=== PATIENT | female | born 1935 | race Caucasian/White ===

== ENCOUNTER 2017-01-07 10:32 | Emergency (ER) | payer MEDICARE, OTHER ==
[2017-01-07 10:56] VITALS: BP 147/90
--- OUTSIDE RECORDS SUMMARY | 2017-01-07 11:05 | XMS REPORT | Summary of Care ---
:1935 Author Organization [facility] Address [address] [place] [address] Care Team Providers Name Role Phone Hugo Quinn Primary Care Physician Encounter Date(s): 11/27/16 - 11/27/16 [facility], [address] [place], [place] [address] Discharge Diagnosis: Hypertension Discharge Diagnosis: CKD stage 3 Discharge Disposition: Discharged to Home or Self Care Attending Physician: Brock Cheung MD Referring Physician: Brock Cheung MD Vital Signs Most recent to oldest [Reference Range]: 1 Temperature Temporal Artery [36.0-38.0 DegC] 36.3 DegC (11/27/16 12:59 PM) Peripheral Pulse Rate [60-100 bpm] 84 bpm (11/27/16 12:59 PM) Blood Pressure [90-130/60-90 mmHg] 134/82mmHg *HI* (11/27/16 12:59 PM) Mean Arterial Pressure, Cuff 99 mmHg (11/27/16 12:59 PM) Most recent to oldest [Reference Range]: 1 Height/Length Measured 160 cm (11/27/16 12:59 PM) Weight Dosing 102.3 kg (11/27/16 12:59 PM) Weight Measured 102.3 kg (11/27/16 12:59 PM) BSA Measured 2.03 m2 (11/27/16 12:59 PM) Body Mass Index Measured 39.96 kg/m2 (11/27/16 12:59 PM) Problem List Condition Effective Dates Status Health Status Informant ARF (acute renal failure)(Confirmed) Active Arthritis(Confirmed) Active Asthma(Confirmed) Active CKD stage 3(Confirmed) Active Depression(Confirmed) Active Dyspepsia(Confirmed) Active Generalized osteoarthritis(Confirmed) Active GERD - Gastro-esophageal reflux Active disease(Confirmed) Hypertension(Confirmed) Active Hypothyroidism(Confirmed) Active Vision problems - lens Active implant(Confirmed) RhA - Rheumatoid arthritis(Confirmed) Active Sciatica(Confirmed) Active Allergies, Adverse Reactions, Alerts Substance Reaction Severity Status adhesives1 hives Active lisinopril Cough Mild Active OxyCODONE Hydrochloride ER Rash Active Sulfanilamide Rash Active sulindac C/O - cough Active 1bandaids do not cause any problems Medications albuterol 2.5 mg/3 mL (0.083%) inhalation solution 3 mL, Inhale, BID, PRN as needed for wheezing, 0 Refill(s), Start Date: 8:29:00 CDT Start Date: 01/30/16 Status: Orderedalbuterol HFA 2 puff(s), Inhale, QID, PRN as needed for wheezing, Start Date: 09/20/13 9:11: 00 CDT Start Date: 09/20/13 Status: Orderedallopurinol 300 mg oral tablet 1 tab(s), Oral, Daily, Start Date: 09/20/13 9:15:00 CDT Start Date: 09/20/13 Status: OrderedamLODIPine 10 mg oral tablet 1 tab(s), Oral, Daily, # 90 tab(s), 3 Refill(s), Start Date: 06/22/14 14:56:59 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, Pharmacy: [facility] Start Date: 06/22/14 Status: OrderedamLODIPine 10 mg oral tablet 1 tab(s), Oral, Daily Start Date: 09/20/13 Stop Date: 09/20/13 Status: CompletedamLODIPine 10 mg oral tablet 1 tab(s), Oral, Daily, # 90 tab(s), 0 Refill(s), Start Date: 06/21/14 11:15:00 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, Pharmacy: [facility] Start Date: 06/21/14 Stop Date: 06/22/14 Status: CompletedamLODIPine 5 mg oral tablet 1 tab(s), Oral, Daily, # 30 tab(s), 0 Refill(s), Start Date: 06/03/14 11:39:00 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 Start Date: 06/03/14 Stop Date: 06/21/14 Status: Discontinuedamoxicillin 875 mg oral tablet See Instructions, 2 tab(s) Oral (each tablet of 875 mg ) 1 hour before procedure with a sip of water., # 875 mg, 0 Refill(s), Start Date: 10/26/14 11: 47:19 CDT, Pharmacy: [facility] [id number] Special Instructions: 2 tab(s) Oral (each tablet of 875 mg ) 1 hour before procedure with a sip of water. Start Date: 10/26/14 Stop Date: 12/21/14 Status: Completedamoxicillin 875 mg oral tablet See Instructions, 2 tab(s) Oral (each tablet of 875 mg ) 1 hour before procedure with a sip of water., # 875 mg, 0 Refill(s), Start Date: 10/25/14 15: 35:00 CDT, Pharmacy: [facility] Special Instructions: 2 tab(s) Oral (each tablet of 875 mg ) 1 hour before procedure with a sip of water. Start Date: 10/25/14 Stop Date: 10/26/14 Status: Completedaspirin 81 mg oral tablet 1 tab(s), Oral, Daily, Start Date: 09/20/13 9:16:00 CDT Start Date: 09/20/13 Status: Orderedcalcium (as carbonate)-vitamin D 600 mg-200 intl units oral tablet 1 tab(s), Oral, Daily, Start Date: 09/20/13 9:13:00 CDT Start Date: 09/20/13 Status: Orderedcitalopram 20 mg oral tablet 1 tab(s), Oral, Daily, PRN anxiety, Start Date: 09/20/13 9:16:00 CDT Start Date: 09/20/13 Status: Ordereddiclofenac sodium 50 mg oral enteric coated tablet 1 tab(s), Oral, TID Start Date: 09/20/13 Stop Date: 02/22/14 Status: Discontinueddoxazosin 1 mg oral tablet 1 tab(s), Oral, HS, # 30 tab(s), 2 Refill(s), Start Date: 11/27/16 13:16:00 CDT , Pharmacy: [facility] [id number] Start Date: 11/27/16 Status: Orderedfluticasone 0.05 mg/inh nasal spray 1 spray(s), Nasal, Daily, Start Date: 09/20/13 9:15:00 CDT Start Date: 09/20/13 Status: Orderedfolic acid 1 mg oral tablet 1 tab(s), Oral, Daily, # 90 tab(s), 3 Refill(s), Start Date: 04/21/15 11:43:00 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, Pharmacy: [facility] Start Date: 04/21/15 Stop Date: 03/15/16 Status: Completedfolic acid 1 mg oral tablet 1 tab(s), Oral, Daily, # 90 tab(s), 3 Refill(s), Start Date: 03/18/16 8:40:52 CDT, Pharmacy: [facility] Start Date: 03/18/16 Status: Orderedfolic acid 1 mg oral tablet 1 tab(s), Oral, Daily Start Date: 09/20/13 Stop Date: 07/28/14 Status: Discontinuedfolic acid 1 mg oral tablet 1 tab(s), Oral, Daily, # 90 tab(s), 3 Refill(s), Start Date: 03/15/16 7:56:15 CDT, Pharmacy: [facility] Start Date: 03/15/16 Stop Date: 03/18/16 Status: Completedfurosemide 20 mg oral tablet 1 tab(s), Oral, Daily, # 30 tab(s), 0 Refill(s), Start Date: 06/21/14 10:39:00 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 Start Date: 06/21/14 Stop Date: 10/23/15 Status: Discontinuedfurosemide 40 mg oral tablet 1 tab(s), Oral, Daily Start Date: 09/20/13 Stop Date: 06/21/14 Status: Completedgabapentin 600 mg oral tablet 1 tab(s), Oral, BID, Start Date: 09/20/13 9:12:00 CDT Start Date: 09/20/13 Status: OrderedInsulin Syringes 1/2" 28G 12.7mm 1 syringe, Subcutaneous, q7days, # 100 syringe(s), 0 Refill(s), Pharmacy: [facility] Supply Start Date: 07/17/16 Stop Date: 07/19/16 Status: CompletedInsulin Syringes 1/2" 28G 12.7mm 1 syringe, Subcutaneous, q7days, # 100 syringe(s), 0 Refill(s), Pharmacy: [facility] Supply Start Date: 07/19/16 Status: OrderedInsulin Syringes 1/2" 28G 12.7mm 100 syringe(s), Subcutaneous, q7days, # 1 boxes, 2 Refill(s), Pharmacy: [facility] Start Date: 08/14/15 Stop Date: 10/25/15 Status: CompletedLasix 20 mg oral tablet 1 tab(s), Oral, Daily, # 90 tab(s), 0 Refill(s), Start Date: 10/23/15 10:26:00 CDT, Pharmacy: [facility] Start Date: 10/23/15 Status: OrderedLasix 40 mg oral tablet 1 tab(s), Oral, Daily, # 90 tab(s), 0 Refill(s), Start Date: 10/23/15 10:26:00 CDT, Pharmacy: [facility] Start Date: 10/23/15 Stop Date: 02/06/16 Status: CompletedLasix 40 mg oral tablet 1 tab(s), Oral, Daily, # 90 tab(s), 3 Refill(s), Start Date: 02/06/16 8:56:36 CDT, Pharmacy: [facility] Start Date: 02/06/16 Stop Date: 05/29/16 Status: Discontinuedlevothyroxine 150 mcg (0.15 mg) oral capsule 1 cap(s), Oral, Daily, Start Date: 09/20/13 9:15:00 CDT Start Date: 09/20/13 Status: Orderedlisinopril 5 mg oral tablet 1 tab(s), Oral, Daily, # 90 tab(s), 3 Refill(s), Start Date: 11/02/14 8:55:00 CDT, Pharmacy: [facility] Start Date: 11/02/14 Stop Date: 12/21/14 Status: Completedlosartan 100 mg oral tablet 1 tab(s), Oral, Daily, # 30 tab(s), 3 Refill(s), Start Date: 04/29/16 10:03:00 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, Pharmacy: [facility] Start Date: 04/29/16 Stop Date: 05/20/16 Status: Completedlosartan 100 mg oral tablet 1 tab(s), Oral, Daily, # 30 tab(s), 3 Refill(s), Start Date: 05/20/16 16:40:08 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, Pharmacy: [facility] Start Date: 05/20/16 Stop Date: 08/26/16 Status: Completedlosartan 100 mg oral tablet 1 tab(s), Oral, Daily, # 90 tab(s), 1 Refill(s), Pharmacy: [facility] Start Date: 08/26/16 Status: Orderedlosartan 25 mg oral tablet 1 tab(s), Oral, Daily, 0 Refill(s), Start Date: 12/21/14 14:35:00 CDT Start Date: 12/21/14 Stop Date: 08/11/15 Status: Completedlosartan 50 mg oral tablet 1 tab(s), Oral, Daily, # 90 tab(s), 2 Refill(s), Start Date: 04/25/15 11:23:00 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, Pharmacy: [facility] Start Date: 04/25/15 Stop Date: 03/14/16 Status: Completedlosartan 50 mg oral tablet 1 tab(s), Oral, Daily, # 90 tab(s), 2 Refill(s), Start Date: 03/14/16 8:49:02 CDT, Pharmacy: [facility] Start Date: 03/14/16 Stop Date: 04/29/16 Status: Discontinuedlosartan 50 mg oral tablet 1 tab(s), Oral, Daily Start Date: 09/21/13 Stop Date: 06/21/14 Status: Completedmethotrexate 2.5 mg oral tablet 6 tab(s), Oral, q7days, # 78 tab(s), 1 Refill(s), Start Date: 06/21/15 11:12:18 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, Pharmacy: [facility] Start Date: 06/21/15 Stop Date: 10/25/15 Status: Completedmethotrexate 2.5 mg oral tablet 6 tab(s), Oral, q7days, # 78 tab(s), 0 Refill(s), Start Date: 04/21/15 10:18:00 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, Pharmacy: [facility] Start Date: 04/21/15 Stop Date: 06/21/15 Status: Completedmethotrexate 2.5 mg oral tablet 4 tab(s), Oral, q7day, Start Date: 09/20/13 9:12:00 CDT Start Date: 09/20/13 Stop Date: 07/28/14 Status: Discontinuedmethotrexate 25 mg/mL injectable solution 0.6 mL, Subcutaneous, q7days, # 8 mL, 2 Refill(s), Start Date: 08/17/15 13:37: 00 CDT, Pharmacy: [facility] Start Date: 08/17/15 Stop Date: 08/13/16 Status: Completedmethotrexate 25 mg/mL injectable solution 0.8 mL, Subcutaneous, q7days, # 10 mL, 1 Refill(s), Start Date: 08/13/16 14:09: 37 CDT, Pharmacy: [facility] Start Date: 08/13/16 Status: OrderedMetoprolol Succinate ER 25 mg oral tablet, extended release 1 tab(s), Oral, Daily, Start Date: 09/20/13 9:12:00 CDT Start Date: 09/20/13 Stop Date: 01/08/16 Status: DiscontinuedPercocet 5/325 oral tablet 1 tab(s), Oral, q6hr interval, # 90 tab(s), 0 Refill(s), Start Date: 12/23/14 10 :14:00 CDT Start Date: 12/23/14 Stop Date: 01/23/15 Status: CompletedPlaquenil Sulfate 200 mg oral tablet 1 tab(s), Oral, BID, 0 Refill(s), Start Date: 02/22/14 12:05:00 CDT Start Date: 02/22/14 Status: OrderedpredniSONE 2.5 mg oral tablet 1 tab(s), Oral, Daily, # 30 tab(s), 2 Refill(s), Pharmacy: [facility] [id number] Start Date: 10/15/16 Status: OrderedpredniSONE 2.5 mg oral tablet 1 tab(s), Oral, Daily, # 30 tab(s), 1 Refill(s), Start Date: 08/13/16 14:14:00 CDT, Pharmacy: [facility] [id number] Start Date: 08/13/16 Stop Date: 10/15/16 Status: CompletedpredniSONE 5 mg oral tablet 1 tab(s), Oral, Daily, AT NIGHT, # 30 tab(s), 1 Refill(s), Pharmacy: [facility] Special Instructions: AT NIGHT Start Date: 09/20/13 Stop Date: 02/22/14 Status: DiscontinuedpredniSONE 5 mg oral tablet 2 tab(s), Oral, Daily, # 20 tab(s), 0 Refill(s), Start Date: 08/18/14 9:37:00 CDT, [facility] [id number] Start Date: 08/18/14 Stop Date: 12/21/14 Status: Completedranitidine 150 mg oral tablet 1 tab(s), Oral, BID, Start Date: 09/20/13 9:17:00 CDT Start Date: 09/20/13 Stop Date: 08/11/15 Status: Completedsucralfate 1 g oral tablet 1 tab(s), Oral, BID, Start Date: 09/20/13 9:16:00 CDT Start Date: 09/20/13 Status: OrderedTylenol Arthritis Caplet 1,950 mg, Oral, HS, Start Date: 09/20/13 9:14:00 CDT Start Date: 09/20/13 Status: OrderedTylenol with Codeine #3 oral tablet 2 tab(s), Oral, q6hr, PRN for pain, # 12 tab(s), 0 Refill(s), Start Date: 11:50:00 CDT Start Date: 01/31/16 Stop Date: 02/05/16 Status: CompletedVitamin D3 1000 intl units oral capsule 1 cap(s), Oral, Daily, Start Date: 09/20/13 9:16:00 CDT Start Date: 09/20/13 Status: Ordered Results No data available for this section Immunizations No data available for this section Procedures Procedure Date Related Diagnosis Body Site Cholecystectomy Laparoscopic1 01/31/16 Cholecystectomy Laparoscopic2 10/27/15 Arthroscopy Shoulder (Left)3 12/23/14 Fusion of joint of foot4 2007 Total knee arthroplasty5 2004 Total knee arthroplasty6 2002 Appendectomy 1956 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
--- OUTSIDE RECORDS SUMMARY | 2017-01-07 11:06 | XMS REPORT | Summary of Care ---
:1935 Author Organization [facility] Address [address] [place] [address] Care Team Providers Name Role Phone Hugo Quinn Primary Care Physician Encounter Date(s): 08/13/16 - 08/13/16 [facility] [address], [address] [place], [place] [address] Discharge Disposition: 01 Discharged to Home or Self Care Attending Physician: Pablo Ahn MD Referring Physician: Pablo Ahn MD Vital Signs Most recent to oldest [Reference Range]: 1 Peripheral Pulse Rate [60-100 bpm] 102 bpm *HI* (08/13/16 1:47 PM) Blood Pressure [90-130/60-90 mmHg] 180/102mmHg *HI* (08/13/16 1:47 PM) Mean Arterial Pressure, Cuff 128 mmHg (08/13/16 1:47 PM) Most recent to oldest [Reference Range]: 1 Height/Length Measured 160 cm (08/13/16 1:47 PM) Weight Dosing 103.50 kg1 (08/13/16 1:50 PM) Weight Measured 103.5 kg (08/13/16 1:47 PM) BSA Measured 2.05 m2 (08/13/16 1:47 PM) Body Mass Index Measured 40.43 kg/m2 (08/13/16 1:47 PM) 1Result Comment: This result was because the dosing weight was either not entered or it is>30 days old. 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, Pharmacy: [facility] Start Date: 06/22/14 Status: OrderedamLODIPine 10 mg oral tablet 1 tab(s), Oral, Daily Start Date: 09/20/13 Stop Date: 09/20/13 Status: CompletedamLODIPine 10 mg oral tablet 1 tab(s), Oral, Daily, # 90 tab(s), 0 Refill(s), Start Date: 06/21/14 11:15:00 THORACIC SURGEON, Pharmacy: [facility] Start Date: 06/21/14 Stop Date: 06/22/14 Status: CompletedamLODIPine 5 mg oral tablet 1 tab(s), Oral, Daily, # 30 tab(s), 0 Refill(s), Start Date: 06/03/14 11:39:00 THORACIC SURGEON Start Date: 06/03/14 Stop Date: 06/21/14 Status: Discontinuedamoxicillin 875 mg oral tablet See Instructions, 2 tab(s) Oral (each tablet of 875 mg ) 1 hour before procedure with a sip of water., # 875 mg, 0 Refill(s), Start Date: 10/26/14 11: 47:19 CDT, Pharmacy: [facility] [id number] Special Instructions: 2 tab(s) Oral (each tablet [...] Start Date: 10/25/14 15: 35:00 CDT, Pharmacy: [facility] Special Instructions: 2 [...] Start Date: 09/20/13 Stop Date: 02/22/14 Status: Discontinuedfluticasone 0.05 mg/inh nasal spray 1 spray(s), Nasal, Daily, Start Date: 09/20/13 9:15:00 CDT Start Date: 09/20/13 Status: Orderedfolic acid 1 mg oral tablet 1 tab(s), Oral, Daily, # 90 tab(s), 3 Refill(s), Start Date: 04/21/15 11:43:00 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 SURGEON, Pharmacy: [facility] Start Date: 04/21/15 Stop Date: 03/15/16 Status: Completedfolic acid 1 mg oral tablet 1 tab(s), Oral, Daily, # 90 tab(s), 3 Refill(s), Start Date: 03/18/16 8:40:52 CDT, Pharmacy: [facility] Start Date: 03/18/16 Status: Orderedfolic acid 1 mg oral tablet 1 tab(s), Oral, Daily Start Date: 09/20/13 Stop Date: 07/28/14 Status: Discontinuedfolic acid 1 mg oral tablet 1 tab(s), Oral, Daily, # 90 tab(s), 3 Refill(s), Start Date: 03/15/16 7:56:15 CDT, Pharmacy: [facility] Start Date: 03/15/16 Stop Date: 03/18/16 Status: Completedfurosemide 20 mg oral tablet 1 tab(s), Oral, Daily, # 30 tab(s), 0 Refill(s), Start Date: 06/21/14 10:39:00 THORACIC SURGEON Start Date: 06/21/14 Stop Date: 10/23/15 Status: Discontinuedfurosemide 40 mg oral tablet 1 tab(s), Oral, Daily Start Date: 09/20/13 Stop Date: 06/21/14 Status: Completedgabapentin 600 mg oral tablet 1 tab(s), Oral, BID, Start Date: 09/20/13 9:12:00 CDT Start Date: 09/20/13 Status: OrderedInsulin Syringes 1/2" 28G 12.7mm 1 syringe, Subcutaneous, q7days, # 100 syringe(s), 0 Refill(s), Pharmacy: [facility] Supply Start Date: 07/17/16 Stop Date: 07/19/16 Status: CompletedInsulin Syringes 1/2" 28G 12.7mm 1 syringe, Subcutaneous, q7days, # 100 syringe(s), 0 Refill(s), Pharmacy: [facility] Supply Start Date: 07/19/16 Status: OrderedInsulin Syringes 1/2" 28G 12.7mm 100 syringe(s), Subcutaneous, q7days, # 1 boxes, 2 Refill(s), Pharmacy: [facility] Start Date: 08/14/15 Stop Date: 10/25/15 Status: CompletedLasix 20 mg oral tablet 1 tab(s), Oral, Daily, # 90 tab(s), 0 Refill(s), Start Date: 10/23/15 10:26:00 CDT, Pharmacy: [facility] Start Date: 10/23/15 Status: OrderedLasix 40 mg oral tablet 1 tab(s), Oral, Daily, # 90 tab(s), 0 Refill(s), Start Date: 10/23/15 10:26:00 CDT, Pharmacy: [facility] Start Date: 10/23/15 Stop Date: 02/06/16 Status: CompletedLasix 40 mg oral tablet 1 tab(s), Oral, Daily, # 90 tab(s), 3 Refill(s), Start Date: 02/06/16 8:56:36 CDT, Pharmacy: [facility] Start Date: 02/06/16 Stop Date: 05/29/16 Status: Discontinuedlevothyroxine 150 mcg (0.15 mg) oral capsule 1 cap(s), Oral, Daily, Start Date: 09/20/13 9:15:00 CDT Start Date: 09/20/13 Status: Orderedlisinopril 5 mg oral tablet 1 tab(s), Oral, Daily, # 90 tab(s), 3 Refill(s), Start Date: 11/02/14 8:55:00 CDT, Pharmacy: [facility] Start Date: 11/02/14 Stop Date: 12/21/14 Status: Completedlosartan 100 mg oral tablet 1 tab(s), Oral, Daily, # 30 tab(s), 3 Refill(s), Start Date: 04/29/16 10:03:00 THORACIC SURGEON, Pharmacy: [facility] Start Date: 04/29/16 Stop Date: 05/20/16 Status: Completedlosartan 100 mg oral tablet 1 tab(s), Oral, Daily, # 30 tab(s), 3 Refill(s), Start Date: 05/20/16 16:40:08 THORACIC SURGEON, Pharmacy: [facility] Start Date: 05/20/16 Status: Orderedlosartan 25 mg oral tablet 1 tab(s), Oral, Daily, 0 Refill(s), Start Date: 12/21/14 14:35:00 CDT Start Date: 12/21/14 Stop Date: 08/11/15 Status: Completedlosartan 50 mg oral tablet 1 tab(s), Oral, Daily, # 90 tab(s), 2 Refill(s), Start Date: 04/25/15 11:23:00 THORACIC SURGEON, Pharmacy: [facility] Start Date: 04/25/15 Stop Date: 03/14/16 Status: Completedlosartan 50 mg oral tablet 1 tab(s), Oral, Daily, # 90 tab(s), 2 Refill(s), Start Date: 03/14/16 8:49:02 CDT, Pharmacy: [facility] Start Date: 03/14/16 Stop Date: 04/29/16 Status: Discontinuedlosartan 50 mg oral tablet 1 tab(s), Oral, Daily Start Date: 09/21/13 Stop Date: 06/21/14 Status: Completedmethotrexate 2.5 mg oral tablet 6 tab(s), Oral, q7days, # 78 tab(s), 1 Refill(s), Start Date: 06/21/15 11:12:18 THORACIC SURGEON, Pharmacy: [facility] Start Date: 06/21/15 Stop Date: 10/25/15 Status: Completedmethotrexate 2.5 mg oral tablet 6 tab(s), Oral, q7days, # 78 tab(s), 0 Refill(s), Start Date: 04/21/15 10:18:00 THORACIC SURGEON, Pharmacy: [facility] Start Date: 04/21/15 Stop Date: 06/21/15 Status: Completedmethotrexate 2.5 mg oral tablet 4 tab(s), Oral, q7day, Start Date: 09/20/13 9:12:00 CDT Start Date: 09/20/13 Stop Date: 07/28/14 Status: Discontinuedmethotrexate 25 mg/mL injectable solution 0.6 mL, Subcutaneous, q7days, # 8 mL, 2 Refill(s), Start Date: 08/17/15 13:37: 00 CDT, Pharmacy: [facility] Start Date: 08/17/15 Stop Date: 08/13/16 Status: Completedmethotrexate 25 mg/mL injectable solution 0.8 mL, Subcutaneous, q7days, # 10 mL, 1 Refill(s), Start Date: 08/13/16 14:09: 37 CDT, Pharmacy: [facility] Start Date: 08/13/16 Status: [...] Refill(s), Start Date: 08/13/16 14:14:00 CDT, Pharmacy: [facility] [id number] Start Date: 08/13/16 Status: OrderedpredniSONE 5 mg oral tablet 1 tab(s), Oral, Daily, AT NIGHT, # 30 tab(s), 1 Refill(s), Pharmacy: [facility] Special Instructions: AT NIGHT Start Date: 09/20/13 Stop Date: 02/22/14 Status: DiscontinuedpredniSONE 5 mg oral tablet 2 tab(s), Oral, Daily, # 20 tab(s), 0 Refill(s), Start Date: 08/18/14 9:37:00 CDT, Pharmacy: [facility] [id number] Start Date: 08/18/14 Stop Date: 12/21/14 Status: [...] of joint of foot4 2007 Total knee arthroplasty2004 Total knee arthroplasty6 2002 Appendectomy 1956 

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
== END 2017-01-07 11:22 | disposition home or self-care (01) ==
LOC: ER 10:32
DX: S40.921A Unspecified superficial injury of right upper arm, initial encounter (principal); W01.198A Fall on same level from slipping, tripping and stumbling with subsequent striking against other object, initial encounter